=== PATIENT | female | born 1985 | race African-American/Black ===

== ENCOUNTER 2024-10-08 19:48 | Emergency (ER) | payer OTHER ==
[~2024-10-08] VITALS: Ht 170.2 cm; Wt 84.0 kg
[2024-10-08 19:49] VITALS: O2SAT 98
[2024-10-08 23:30] VITALS: BP 127/82; PULSE 84; RESP 18
[2024-10-08] MEDS: KETOROLAC 15MG/ML VIAL IM ONE (23:30)
[2024-10-09 00:04] VITALS: TEMP 98.3
[2024-10-09] MEDS: ACETAMINOPHEN 325MG TABLET PO ONE (00:04)
== END 2024-10-08 23:48 | disposition left against medical advice (07) ==
LOC: ER 19:48
DX: R51.9 Headache, unspecified (principal); Z88.0 Allergy status to penicillin
CPT/HCPCS: 99283; 96372; J1885

== ENCOUNTER 2025-02-03 01:18 | Emergency (ER) | payer MEDICAID ==
[~2025-02-03] VITALS: Ht 162.6 cm; Wt 82.0 kg
[2025-02-03 01:25] VITALS: BP 149/93; PULSE 74; RESP 18; TEMP 37.1; O2SAT 100
[2025-02-03] MEDS ORDERED: OCUFLX LEFTEYE (04:02)
== END 2025-02-03 05:13 | disposition home or self-care (01) ==
LOC: ER 01:18
DX: H10.89 Other conjunctivitis (principal); Z88.0 Allergy status to penicillin; F32.A Depression, unspecified
CPT/HCPCS: 99283